=== PATIENT | male | born 1955 | race Caucasian/White ===

== ENCOUNTER 2019-05-03 19:45 | Emergency (ER) | payer BC, OTHER ==
--- NOTE | 2019-05-03 20:43 | ED ---
General Adult HPI - General Chief complaint: Extremity Injury, Lower Stated complaint: Ankle injury Time Seen by Provider: 05/03/19 20:01 Source: patient Mode of arrival: wheelchair Limitations: no limitations - History of Present Illness Initial comments: 64-year-old male patient presents to the emergency department today for evaluation of the right ankle. Patient states he is walking through the parking lot when he slipped on ice and fell injuring the ankle. States he is unable to bear weight on it without significant discomfort. Denies any numbness or tingling to the foot. He was seen and evaluated at urgent care, placed in a posterior splint and sent here for further evaluation. Patient denies hitting his head or losing consciousness during the fall. Denies neck or back pain. Denies any other injuries. Patient denies any headache, chest pain, shortness of breath, dizziness, weakness, abdominal pain, nausea, vomiting, or difficulties with bowel movements or urination. - Related Data Previous Rx's Medication Instructions Recorded Hydrocodone/Acetaminophen [Christine 1 each PO Q6HR PRN #20 tab 08/15/14 5-325] Hydrocodone/Acetaminophen [[place]ine 1 tab PO Q6HR PRN #12 tab 05/03/19 5-325] Ibuprofen [Motrin] 600 mg PO Q8HR PRN #30 tab 05/03/19 Allergies Allergy/AdvReac Type Severity Reaction Status Date / Time dye Allergy Rash/Hives Uncoded 05/03/19 19:57 Review of Systems ROS Statement: Those systems with pertinent positive or pertinent negative responses have been documented in the HPI. ROS Other: All systems not noted in ROS Statement are negative. Past Medical History Past Medical History: No Reported History, Hypertension Additional Past Medical History / Comment(s): tachycardia History of Any Multi-Drug Resistant Organisms: None Reported Past Surgical History: Hernia Repair Additional Past Surgical History / Comment(s): finger amputation. Past Psychological History: No Psychological Hx Reported Smoking Status: Current every day smoker Past Alcohol Use History: None Reported Past Drug Use History: None Reported General Exam Limitations: no limitations General appearance: alert, in no apparent distress, other (This is a well- developed, well-nourished adult male patient in no acute distress. Vital signs upon presentation are temperature 98.7F, pulse 70, respiration 16, blood pressure 145/81, pulse ox 95% on room air.) Eye exam: Present: normal appearance, PERRL, EOMI. Absent: scleral icterus, conjunctival injection, periorbital swelling ENT exam: Present: normal exam, normal oropharynx, mucous membranes moist Respiratory exam: Present: normal lung sounds bilaterally. Absent: respiratory distress, wheezes, rales, rhonchi, stridor Cardiovascular Exam: Present: regular rate, normal rhythm, normal heart sounds. Absent: systolic murmur, diastolic murmur, rubs, gallop, clicks Extremities exam: Present: full ROM, normal capillary refill, other (Posterior splint in place to the right ankle. Toes are cold to touch, cap refill 3 seconds. ). Absent: normal inspection, tenderness, pedal edema, joint swelling, calf tenderness Neurological exam: Present: alert, oriented X3, CN II-XII intact Psychiatric exam: Present: normal affect, normal mood Skin exam: Present: warm, dry, intact, normal color. Absent: rash Course Vital Signs 05/03/19 19:51 Temperature 98.7 F Pulse Rate 70 Respiratory 16 Rate Blood Pressure 145/81 O2 Sat by Pulse 95 Oximetry Medical Decision Making - Medical Decision Making 64-year-old male patient presents to the emergency department today sent from urgent care for evaluation of right ankle fracture. The patient did have a posterior splint in place. He was sent with a disc of his x-ray however was unable to be uploaded. We did repeat x-rays which showed a trimalleolar fracture. We did reinforce splint with additional splint material creating a posterior and stirrup splint. My attending Dr. Haywood spoke to the on-call data entry specialist Dr. Kelly who recommended follow-up in the office as soon as possible. Patient was instructed to remain nonweightbearing to the right leg. He is instructed to keep splint in place. He'll be discharged with pain medication. Return parameters discussed in detail. He verbalizes understanding and agrees with this plan. - Radiology Data Radiology results: report reviewed, image reviewed 3 views of the right ankle are obtained. Report was reviewed in its entirety. Impression by Dr. Soy Oliveira shows trimalleolar fracture/dislocation. Disposition Clinical Impression: Trimalleolar fracture of right ankle Disposition: HOME SELF-CARE Condition: Good Instructions (If sedation given, give patient instructions): Ankle Fracture (ED), Splint Care (ED) Additional Instructions: Do not remove splint. Do not bear any weight to the right ankle or foot. Use crutches for ambulation. Follow-up with the data entry specialist for further evaluation as soon as possible. Follow-up through primary care physician or employee health for further evaluation in 1-2 days. Return to the emergency department for any other new, worsening, or concerning symptoms. Prescriptions: Ibuprofen [Motrin] 600 mg PO Q8HR PRN #30 tab PRN Reason: Pain Hydrocodone/Acetaminophen [Christine 5-325] 1 tab PO Q6HR PRN #12 tab PRN Reason: Pain Is patient prescribed a controlled substance at d/c from ED?: No Referrals: Thu Jackson DO [Primary Care Provider] - 1-2 days Edenilson Kelly MD [STAFF PHYSICIAN] - 1-2 days Time of Disposition: 21:40
--- NOTE | 2019-05-03 21:01 | XR ---
PROCEDURE: XR ankle complete RT - 3V DATE AND TIME: 05/03/2019 8:25 PM CLINICAL INDICATION: PHH; ankle fracture TECHNIQUE: Department protocol COMPARISON: None FINDINGS: Trimalleolar comminuted fracture/dislocation, with approximately 1 cm lateral displacement of the talar dome with respect to the tibial plafond. IMPRESSION: TRIMALLEOLAR FRACTURE/DISLOCATION.
[2019-05-03] MEDS ORDERED: IBUPROFEN 600 MG STARTER PACK 4 TAB BTL PO STA (21:37)
[2019-05-03] MEDS ORDERED: ACET/COD 300 MG/30 MG STARTER PACK 6 TAB BTL PO STA (21:37)
[2019-05-03 22:34] VITALS: BP 137/79; PULSE 72; RESP 19; TEMP 98
--- NOTE | 2019-05-03 22:41 | ED ---
Disposition Clinical Impression: Trimalleolar fracture of right ankle Disposition: HOME SELF-CARE Condition: Good Instructions (If sedation given, give patient instructions): Ankle Fracture (ED), Splint Care (ED) Additional Instructions: Do not remove splint. Do not bear any weight to the right ankle or foot. Use crutches for ambulation. Follow-up with the ammunition specialist for further evaluation as soon as possible. Follow-up through primary care physician or employee health for further evaluation in 1-2 days. Return to the emergency department for any other new, worsening, or concerning symptoms. Prescriptions: Ibuprofen [Motrin] 600 mg PO Q8HR PRN #30 tab PRN Reason: Pain Hydrocodone/Acetaminophen [[place] 5-325] 1 tab PO Q6HR PRN #12 tab PRN Reason: Pain Is patient prescribed a controlled substance at d/c from ED?: No Referrals: Thu Jackson DO [Primary Care Provider] - 1-2 days Edenilson Kelly MD [STAFF PHYSICIAN] - 1-2 days Procedures - Orthopedic Splinting/Casting Injury #1 Side: right Lower Extremity Injury Location: ankle Lower Extremity Immobilizer: stirrup splint, Claudy wrap
== END 2019-05-03 22:03 | disposition home or self-care (01) ==
LOC: EC 19:45
DX: S82.851A Displaced trimalleolar fracture of right lower leg, initial encounter for closed fracture (principal); F17.200 Nicotine dependence, unspecified, uncomplicated; Z91.048 Other nonmedicinal substance allergy status; W00.0XXA Fall on same level due to ice and snow, initial encounter; Y93.01 Activity, walking, marching and hiking; Y92.481 Parking lot as the place of occurrence of the external cause; Y99.0 Civilian activity done for income or pay
CPT/HCPCS: 99283

== ENCOUNTER 2019-05-09 13:35 | Inpatient (IN) | payer BC, OTHER ==
--- NOTE | 2019-05-08 10:26 | HP ---
HISTORY AND PHYSICAL REASON FOR ADMISSION: Surgery is 05/09/2019 HISTORY OF PRESENT ILLNESS: Mina Moran is a 64-year-old patient seen with a right ankle displaced comminuted trimalleolar fracture. I recommended open reduction, internal fixation. I reviewed the procedure, risks, complications, benefits, recovery. The patient was agreeable. Consent was obtained. PAST MEDICAL HISTORY: Hypertension. SURGICAL HISTORY: Noncontributory. MEDICATIONS: Metoprolol. ALLERGIES: CONTRAST IV DYE. SOCIAL: History smokes 1 pack of cigarettes daily. PHYSICAL EXAMINATION: Evaluation of the right ankle reveals there is diffuse swelling, tenderness along the medial lateral malleoli. Limited range of motion. No open wounds. No fracture blisters. He has good pedal pulses. Able to move his toes with no pain. His distal neurovascular exam is intact. X-RAYS: Of the right ankle revealed a comminuted displaced trimalleolar fracture. IMPRESSION: 1. Right ankle trimalleolar fracture. 2. Hypertension. PLAN: Open reduction, internal fixation right ankle trimalleolar fracture. Surgery is 05/09/2019. MMODL / IJN: [id number] /
[~2019-05-09 13:35] MED LIST: DEXAMETHASONE SOD PHOSPHATE 10 MG/ML 1 ML VIAL IV ONE; HYDROmorphone 0.5 MG/0.5 ML SYRINGE IVP PRN; LIDOCAINE 1% 20 ML VIAL (10MG/ML) FOR IV START INTRADERMA PRN; MIDAZOLAM 2 MG/2 ML VIAL IV PRN; ONDANSETRON 4 MG/2 ML VIAL IVP ONE; fentaNYL (PF) 50 MCG/ML 2 ML AMP IV PRN
[2019-05-09] MEDS: LACTATED RINGERS 1,000 ML IV SCH (14:30)
[2019-05-09] MEDS ORDERED: MIDAZOLAM 2 MG/2 ML VIAL IVP ONE (14:55)
[2019-05-09] MEDS ORDERED: LIDOCAINE 1% INJ 10MG/ML (20 ML MDV) ONE (17:25)
[2019-05-09] MEDS ORDERED: SUCCINYLCHOLINE CHLORIDE 100 MG/5 ML SYR IV ONE (17:25)
[2019-05-09] MEDS ORDERED: GLYCOPYRROLATE 0.2 MG/ML 2 ML VIAL ONE (17:25)
[2019-05-09] MEDS ORDERED: NEOSTIGMINE 1 MG/ML 10 ML VIAL ONE (17:25)
[2019-05-09] MEDS ORDERED: ROCURONIUM BROMIDE 10 MG/ML 10 ML VIAL IV ONE (17:25)
[2019-05-09] MEDS ORDERED: PROPOFOL 10 MG/ML 20 ML VIAL IV ONE (17:25)
[2019-05-09] MEDS ORDERED: MIDAZOLAM 2 MG/2 ML VIAL ONE (17:25)
[2019-05-09] MEDS ORDERED: fentaNYL (PF) 50 MCG/ML 2 ML AMP ONE (17:25)
[2019-05-09] MEDS ORDERED: ROPIVACAINE 5 MG/ML 30 ML VIAL ONE (17:25)
[2019-05-09] MEDS ORDERED: HYDROmorphone (PF) 1 MG/ML ONE (17:25)
[2019-05-09] MEDS ORDERED: DEXAMETHASONE SOD PHOSPHATE 4 MG/ML 1 ML VIAL ONE (17:25)
[2019-05-09] MEDS ORDERED: ceFAZolin 1,000 MG in SODIUM CHLORIDE 0.9% 1,000 ML IRRIGATION ONE ×2 (18:48→18:49)
--- NOTE | 2019-05-09 19:20 | XR ---
Fluoroscopy History: ORIF RT ankle ORIF RT ankle. Dr. Guillermo. 3 images scanned. 34 sec fluoro time
[2019-05-09] MEDS ORDERED: ONDANSETRON 4 MG/2 ML VIAL IVP PRN (19:21)
[2019-05-09] MEDS ORDERED: NALOXONE 0.4 MG/ML 1 ML VIAL IV PRN (19:21)
[2019-05-09] MEDS ORDERED: MAGNESIUM HYDROXIDE 2,400 MG/10 ML CUP PO PRN (19:21)
[2019-05-09] MEDS ORDERED: HYDROcodone/APAP 7.5-325MG 1 EACH TAB PO PRN ×2 (19:21→19:22)
[2019-05-09] MEDS ORDERED: HYDROmorphone 0.5 MG/0.5 ML SYRINGE IVP PRN (19:21)
[2019-05-09] MEDS ORDERED: HYDROmorphone 1 MG/ML 1 ML SYRINGE IVP PRN (19:21)
--- NOTE | 2019-05-09 19:27 | P.OP ---
Date of Procedure: 05/09/19 Preoperative Diagnosis: Comminuted/displaced right ankle trimalleolar fracture Postoperative Diagnosis: Severely comminuted/displaced right ankle trimalleolar fracture Procedure(s) Performed: Open reduction internal fixation right ankle trimalleolar fracture Implants: Synthes one third semitubular plate with appropriate length screws Anesthesia: GETA, regional (Popliteal block) Surgeon: Enrique Guillermo Bench Worker Apprentice #1: Gaudencio Amador Estimated Blood Loss (ml): 20 Pathology: none sent Condition: stable Disposition: PACU Indications for Procedure: 64-year-old patient seen with a comminuted displaced right ankle trimalleolar fracture. I recommended open reduction internal fixation. The procedure, risks, complications and recovery were discussed the patient. He was agreeable. Consent was obtained. Operative Findings: see description of procedure Description of Procedure: Patient was taken to the operative suite. The patient had received a popliteal block by the department of anesthesia for postoperative pain management. Patient underwent a general anesthetic by the department of anesthesia. A well- padded tourniquet placed proximal right thigh. Right lower extremity was prepped and draped in the normal sterile orthopedic fashion. Patient received preoperative IV antibiotics. The extremity was elevated and tourniquet was insufflated to 300. An incision was made over the anterior lateral malleolus. Dissection was taken down through the fracture site. There was a severely comminuted fracture involving the lateral malleolus was a caudal split through the anterior portion of the lateral malleolus which is also severely comminuted. The lateral aspect of the talus was visible. We debrided some of the fragments. I brought the very distal lateral malleolus tip into proximity and held together with K wires. A one third semitubular plate was now placed along the lateral malleolus which was contoured appropriately. Appropriate length screws were inserted proximally we had good bone. I inserted 2 screws distally through good bone. The K wires removed. A brought the C-arm into the operative field and noted the alignment was not reasonable. Some of the fracture fragments were in the and satisfactory. The C-arm was pulled back. At this point I decided to fix the medial malleolus. Incision was made in that area. I dissected down to the medial mortise itself. This is also comminuted. I was able to align it well. 245 mm partially-threaded cancellous screws were introduced with good bite and purchase. The C-arm was brought in Her feel noting good positioning and fixation of the medial malleolus. I now turned my attention back the lateral malleolus. The entire plate construct was removed. I now realign the fracture fragments is as well as I could do given the severe comminution. I again used multiple bone to bone clamps to hold the fracture fragments in position. I now reintroduced the plate capturing the proximal lateral malleolus we had good bone. I was able to one single screw distally. I was able to capture the caudal anterior fragment with one single cannulated screw. The construct distally was reasonably positioned via intraoperative C- arm. The mortise was restored. The fracture seemed to have reasonable stability at this point. Spot films were obtained intraoperatively to document the procedure. The wounds were irrigated. The subcu soft tissues were approximated with 2-0 Vicryl. The skin is proximal skin grzegorz. Sterile dressings were applied. The tourniquet was released and immediate capillary refill noted. I applied a modified bulky Braswell splint with ankle in neutral position. The patient was then transferred to bed and recovery stable condition. Jagjit VARGHESE assisted procedure. His prognosis does remain guarded given the severely comminuted fracture.
--- NOTE | 2019-05-09 19:48 | P.ANPRN ---
Procedure Note - Anesthesia - Nerve Block Performed Right Popliteal Single Time Out Performed: Yes Date of Procedure: 05/09/19 Procedure Start Time: 14:55 Procedure Stop Time: 15:01 Location of Patient: PreOp Indication: Acute Post-Operative Pain, Requested by Surgeon Sedation Type: Sedate with meaningful contact maintained Preparation: Sterile Prep Position: Left Lateral Needle Types: Pajunk Needle Gauge: 21 Ultrasound used to visualize needle placement: Yes Ultrasound used to observe medication spread: Yes Blood Aspirated: No Pain Paresthesia on Injection Noted: No Resistance on Injection: Normal Image Stored and Saved: Yes Events: Uneventful and Well Tolerated (ropi .5% 30cc plus dexamethasone 4mg)
[2019-05-09] MEDS ORDERED: DIGOXIN 125 MCG TAB PO SCH ×2 (22:00→22:01)
[2019-05-09] MEDS ORDERED: VERAPAMIL SR 180 MG TABLET.ER PO SCH ×2 (22:00→22:01)
[2019-05-09] MEDS ORDERED: METOPROLOL SUCCINATE (ER) 50 MG TAB.ER.24H PO SCH ×2 (22:00→22:01)
[2019-05-09] MEDS: traMADol 50 MG TAB PO SCH (22:23)
[2019-05-09] MEDS: SENNOSIDES-DOCUSATE SODIUM 1 EACH TAB PO SCH (22:24)
[2019-05-10] MEDS: traMADol 50 MG TAB PO SCH ×4 (08:04→22:39)
[2019-05-10] MEDS: ENOXAPARIN 30 MG/0.3 ML SYRINGE SQ SCH ×2 (08:05→20:03)
[2019-05-10] MEDS: LACTATED RINGERS 1,000 ML IV SCH (08:06)
--- NOTE | 2019-05-10 13:08 | P.PN ---
Subjective Progress Note Date: 05/10/19 Principal diagnosis: Status post ORIF right trimalleolar ankle fracture Patient evaluated at bedside, he is resting comfortably. His pain is controlled. There is concern the patient being discharged home. Patient cannot bear weight on this ankle for a long time, he has no friends or family around, he also has stairs. He is concerned with his pack. Discussed this with case management. Objective - Vital Signs Vital signs: Vital Signs Temp 97.8 F 05/10/19 07:00 Pulse 76 05/10/19 07:00 Resp 16 05/10/19 07:00 BP 127/73 05/10/19 07:00 Pulse Ox 91 L 05/10/19 07:00 Intake & Output 05/09/19 05/10/19 05/10/19 18:59 06:59 18:59 Intake Total 1451 100 Output Total 320 800 Balance 1451 -220 -800 Weight 104.326 kg Intake: IV 1451 100 Output: Urine 300 800 Estimated Blood Loss 20 Other: # Voids 0 2 - Exam Right lower extremity: Postop splint is in good position and condition. He is able to wiggle the toes. Sensory exam to light touch both proximal distal and intact. Assessment and Plan Plan: Assessment: Postop day #1 status post ORIF right trimalleolar ankle fracture Plan: Pain control, continue current medication GI and DVT prophylaxis, continue current medication Nonweightbearing right lower extremity Ice and elevate often Discussing case with social work and case management about discharge options Time with Patient: Less than 30
[2019-05-10] MEDS: SENNOSIDES-DOCUSATE SODIUM 1 EACH TAB PO SCH (20:09)
[2019-05-10] MEDS: DIGOXIN 125 MCG TAB PO SCH (20:45)
[2019-05-10] MEDS: VERAPAMIL SR 180 MG TABLET.ER PO SCH (20:45)
[2019-05-10] MEDS: METOPROLOL SUCCINATE (ER) 50 MG TAB.ER.24H PO SCH (20:45)
--- NOTE | 2019-05-11 08:23 | P.CONS ---
History of Present Illness - Reason for Consult Consult date: 05/10/19 medical management Requesting physician: Enrique Guillermo - History of Present Illness Mina Moran is a 64 yo M with PMH of HTN, CAD who is POD#1 after ORIF of R ankle trimaleollar fracture. He is feeling well today, reports minimal pain, denies fever, chills, chest pain or shortness of breath. He has no concerns. Review of Systems All systems: negative Constitutional: Denies chills, Denies fever Eyes: denies blurred vision, denies pain Ears, nose, mouth and throat: Denies headache, Denies sore throat Cardiovascular: Denies chest pain, Denies shortness of breath Respiratory: Denies cough Gastrointestinal: Denies abdominal pain, Denies diarrhea, Denies nausea, Denies vomiting Musculoskeletal: Denies myalgias Musculoskeletal: right: ankle pain, as per HPI, foot swelling Integumentary: Denies pruritus, Denies rash Neurological: Denies numbness, Denies weakness Psychiatric: Denies anxiety, Denies depression Endocrine: Denies fatigue, Denies weight change Past Medical History Past Medical History: No Reported History, Hypertension, Pulmonary Embolus (PE) Additional Past Medical History / Comment(s): tachycardia History of Any Multi-Drug Resistant Organisms: None Reported Past Surgical History: Hernia Repair Additional Past Surgical History / Comment(s): PE in 2008; Originally was on Eliqius no longer on. finger amputation. Past Anesthesia/Blood Transfusion Reactions: No Reported Reaction Past Psychological History: No Psychological Hx Reported Smoking Status: Current every day smoker Past Alcohol Use History: None Reported Past Drug Use History: None Reported - Past Family History Father Family Medical History: No Reported History Mother Family Medical History: No Reported History Medications and Allergies Home Medications Medication Instructions Recorded Confirmed Type Ibuprofen [Motrin] 600 mg PO Q8HR PRN #30 tab 05/03/19 05/09/19 Rx Acetaminophen-Codeine 300-30mg 1 tab PO Q6H PRN 05/09/19 05/09/19 History [Tylenol w/codeine #3] Digoxin [Lanoxin] 125 mcg PO DAILY 05/09/19 05/09/19 History Metoprolol Succinate (ER) [Toprol 1 tab PO DAILY 05/09/19 05/09/19 History XL] Verapamil Sr [Isoptin Sr] 1 tab PO DAILY 05/09/19 05/09/19 History Allergies Allergy/AdvReac Type Severity Reaction Status Date / Time dye Allergy Rash/Hives Uncoded 05/09/19 14:25 Physical Exam Vitals: Vital Signs Temp Pulse Pulse Resp BP Pulse Ox 05/11/19 02:27 98.7 F 73 17 123/69 94 L 05/10/19 20:45 79 136/75 05/10/19 19:45 97.6 F 79 15 126/74 05/10/19 16:35 15 05/10/19 16:33 98.4 F 81 15 122/68 93 L 05/10/19 15:00 98.2 F 80 17 110/69 91 L 05/10/19 10:00 98.2 F 69 18 117/64 Intake and Output 05/10/19 05/11/19 05/11/19 22:59 06:59 14:59 Output Total 1225 Balance -1225 Output: Urine 1225 Other: # Voids 2 1 General: well nourished, well developed, NAD. Vitals reviewed Eyes: PERRL, EOMI, conjunctiva normal HENT: normocephalic, mucus membranes moist Neck: supple, no JVD Lungs: normal respiratory effort, no wheezes or rales CV: Regular rate and rhythm, no murmur. Peripheral pulses 2+ Abdomen: soft, nondistended, no organomegaly Lymph: no cervical or axillary LAD Ext: R ankle in wrap, cap refill <2 seconds, sensation intact Skin: warm and dry. Neuro: A&Ox3, normal mood and affect Assessment and Plan (1) Coronary artery disease involving [place] coronary artery Current Visit: Yes Status: Acute Code(s): I25.10 - ATHSCL HEART DISEASE OF [place] CORONARY ARTERY W/O ANG PCTRS SNOMED Code(s): 2101770133850 (2) Hypertension Current Visit: Yes Status: Acute Code(s): I10 - ESSENTIAL (PRIMARY) HYPERTENSION SNOMED Code(s): 11896965 (3) Trimalleolar fracture of right ankle Current Visit: No Status: Acute Code(s): S82.851A - DISPLACED TRIMALLEOLAR FRACTURE OF RIGHT LOWER LEG, INIT SNOMED Code(s): 421283966 (4) History of DVT (deep vein thrombosis) Current Visit: Yes Status: Acute Code(s): Z86.718 - PERSONAL HISTORY OF OTHER VENOUS THROMBOSIS AND EMBOLISM SNOMED Code(s): 544238355 Plan: 1. S/p ORIF of R ankle fracture. Pain control per primary. He is medically stable for discharge 2. CAD, HTN. Continue digoxin, metoprolol, verapamil 3. Hx DVT. Lovenox for DVT prophylaxis
[2019-05-11] MEDS: LACTATED RINGERS 1,000 ML IV SCH (08:29)
[2019-05-11] MEDS: ENOXAPARIN 30 MG/0.3 ML SYRINGE SQ SCH ×2 (09:32→20:18)
[2019-05-11] MEDS: traMADol 50 MG TAB PO SCH ×4 (09:36→22:24)
--- NOTE | 2019-05-11 12:05 | P.PN ---
Subjective Progress Note Date: 05/11/19 Principal diagnosis: Status post ORIF right trimalleolar ankle fracture Patient evaluated at bedside, he is resting comfortably. His pain is controlled. Working with case management and social work on discharge plan Objective - Vital Signs Vital signs: Vital Signs Temp 99.1 F 05/11/19 08:33 Pulse 74 05/11/19 08:33 Resp 14 05/11/19 10:09 BP 114/70 05/11/19 08:33 Pulse Ox 93 L 05/11/19 07:00 Intake & Output 05/10/19 05/11/19 05/11/19 18:59 06:59 18:59 Intake Total 118 Output Total 1150 1225 200 Balance -1150 -1225 -82 Intake: Oral 118 Output: Urine 1150 1225 200 Other: Voiding Method Urinal Urinal # Voids 2 1 1 - Exam Right lower extremity: Postop splint is in good position and condition. He is able to wiggle the toes. Sensory exam to light touch both proximal distal and intact. Assessment and Plan Plan: Assessment: Postop day #2 status post ORIF right trimalleolar ankle fracture Plan: Pain control, continue current medication GI and DVT prophylaxis, continue current medication Nonweightbearing right lower extremity Ice and elevate often Discussing case with social work and case management about discharge options Time with Patient: Less than 30
--- NOTE | 2019-05-11 15:06 | P.PN ---
Subjective Progress Note Date: 05/11/19 Mina Moran is a 64 yo M with PMH of HTN, CAD who is POD#1 after ORIF of R ankle trimaleollar fracture. He is feeling well today, reports minimal pain, denies fever, chills, chest pain or shortness of breath. He has no concerns. 05/11/2019 pain controlled. Up with walker, nonweightbearing of surgical ex tremity as per orthopedic surgeon. Denies lightheadedness, dizziness or focal deficits. Good oral intake, no nausea vomiting or diarrhea. Passing flatus, no bowel movement. Denies chest pain, palpitations or shortness of breath. Objective - Vital Signs Vital signs: Vital Signs Temp 99.1 F 05/11/19 08:33 Pulse 74 05/11/19 08:33 Resp 14 05/11/19 10:09 BP 114/70 05/11/19 08:33 Pulse Ox 93 L 05/11/19 07:00 Intake & Output 05/10/19 05/11/19 05/11/19 18:59 06:59 18:59 Intake Total 118 Output Total 1150 1225 200 Balance -1150 -1225 -82 Intake: Oral 118 Output: Urine 1150 1225 200 Other: Voiding Method Urinal Urinal # Voids 2 1 1 - Exam General: Sitting up in bed, well nourished, well developed, NAD. Vitals reviewed Eyes: PERRL, EOMI, conjunctiva normal HENT: normocephalic, mucus membranes moist Neck: supple, no JVD Lungs: normal respiratory effort, no wheezes or rales CV: Regular rate and rhythm, no murmur. Peripheral pulses 2+ Abdomen: soft, nondistended, no organomegaly Lymph: no cervical or axillary LAD Ext: R ankle in wrap, cap refill <2 seconds, sensation intact Skin: warm and dry. Neuro: A&Ox3, normal mood and affect Assessment and Plan Assessment: (1) Coronary artery disease involving [place] coronary artery Current Visit: Yes Status: Acute Code(s): I25.10 - ATHSCL HEART DISEASE OF [place] CORONARY ARTERY W/O ANG PCTRS SNOMED Code(s): 9596470879424 (2) Hypertension Current Visit: Yes Status: Acute Code(s): I10 - ESSENTIAL (PRIMARY) HYPERTENSION SNOMED Code(s): 13230189 (3) Trimalleolar fracture of right ankle Current Visit: No Status: Acute Code(s): S82.851A - DISPLACED TRIMALLEOLAR FRACTURE OF RIGHT LOWER LEG, INIT SNOMED Code(s): 818777334 (4) History of DVT (deep vein thrombosis) Current Visit: Yes Status: Acute Code(s): Z86.718 - PERSONAL HISTORY OF OTHER VENOUS THROMBOSIS AND EMBOLISM SNOMED Code(s): 061852971 Plan: Continue current medication regime , digoxin, metoprolol, verapamil ,monitoring and symptomatic treatment. Pain management per primary. GI and DVT prophylaxis in place. Discharge planning in progress, potential subacute rehab. Patient concerned about the care of his cat-message left for social work/case management notified. Possibly community resources to assist. Medically stable for discharge. Follow up with PCP in 1 week. The impression and plan of care has been dictated as directed. : I performed a history and examination of this patient, discussed the same with the dictator. I agree with the dictator's note ,documented as a scribe. Any additional findings or plans will be noted.
[2019-05-11] MEDS: PANTOPRAZOLE 40 MG/10 ML VIAL IVP SCH (17:30)
[2019-05-11] MEDS: SENNOSIDES-DOCUSATE SODIUM 1 EACH TAB PO SCH (20:18)
[2019-05-11] MEDS: DIGOXIN 125 MCG TAB PO SCH (20:19)
[2019-05-11] MEDS: VERAPAMIL SR 180 MG TABLET.ER PO SCH (20:19)
[2019-05-11] MEDS: METOPROLOL SUCCINATE (ER) 50 MG TAB.ER.24H PO SCH (20:19)
[2019-05-12] MEDS: LACTATED RINGERS 1,000 ML IV SCH (08:22)
[2019-05-12] MEDS: PANTOPRAZOLE 40 MG/10 ML VIAL IVP SCH (08:28)
[2019-05-12] MEDS: traMADol 50 MG TAB PO SCH ×4 (08:28→21:17)
[2019-05-12] MEDS: ENOXAPARIN 30 MG/0.3 ML SYRINGE SQ SCH ×2 (08:28→20:01)
[2019-05-12] MEDS: PANTOPRAZOLE 40 MG TABLET PO SCH (09:16)
--- NOTE | 2019-05-12 11:35 | P.PN ---
Subjective Progress Note Date: 05/12/19 Mina Moran is a 64 yo M with PMH of HTN, CAD who is POD#1 after ORIF of R ankle trimaleollar fracture. He is feeling well today, reports minimal pain, denies fever, chills, chest pain or shortness of breath. He has no concerns. 05/11/2019 pain controlled. Up with walker, nonweightbearing of surgical ex tremity as per orthopedic surgeon. Denies lightheadedness, dizziness or focal deficits. Good oral intake, no nausea vomiting or diarrhea. Passing flatus, no bowel movement. Denies chest pain, palpitations or shortness of breath. 01/09/2019 no overnight events reported. Tolerating diet with no nausea vomiting or diarrhea. Passing flatus, no bowel movement. Denies lightheadedness, dizziness or focal deficits. Denies chest pain, palpitations or shortness of breath. Vital signs stable. Maintaining O2 sats in the 90s on room air. Discharge planning in progress as per primary to subacute rehab. Objective - Vital Signs Vital signs: Vital Signs Temp 98.2 F 05/12/19 07:00 Pulse 68 05/12/19 07:00 Resp 17 05/12/19 07:00 BP 121/76 05/12/19 07:00 Pulse Ox 92 L 05/12/19 07:00 Intake & Output 05/11/19 05/12/19 05/12/19 18:59 06:59 18:59 Intake Total 340 20 236 Output Total 200 200 Balance 140 -180 236 Intake: Oral 340 20 236 Output: Urine 200 200 Other: Voiding Method Urinal Toilet # Voids 3 1 - Exam General: Sitting up in bed, well nourished, no acute distress Eyes: PERRL, EOMI, conjunctiva normal HENT: normocephalic, mucus membranes moist Neck: supple, no JVD Lungs: normal respiratory effort, no rhonchi, wheezes or rales CV: Regular rate and rhythm, no murmur. Peripheral pulses 2+ Abdomen: soft, nondistended, no organomegaly Lymph: no cervical or axillary LAD Ext: R ankle in wrap, cap refill <2 seconds, sensation intact Skin: warm and dry. Neuro: A&Ox3, normal mood and affect Assessment and Plan Assessment: (1) Coronary artery disease involving [place] coronary artery Current Visit: Yes Status: Acute Code(s): I25.10 - ATHSCL HEART DISEASE OF [place] CORONARY ARTERY W/O ANG PCTRS SNOMED Code(s): 5819096909939 (2) Hypertension Current Visit: Yes Status: Acute Code(s): I10 - ESSENTIAL (PRIMARY) HYPERTENSION SNOMED Code(s): 56094843 (3) Trimalleolar fracture of right ankle Current Visit: No Status: Acute Code(s): S82.851A - DISPLACED TRIMALLEOLAR FRACTURE OF RIGHT LOWER LEG, INIT SNOMED Code(s): 152341659 (4) History of DVT (deep vein thrombosis) Current Visit: Yes Status: Acute Code(s): Z86.718 - PERSONAL HISTORY OF OTHER VENOUS THROMBOSIS AND EMBOLISM SNOMED Code(s): 566920914 Plan: Continue current medication regime , digoxin, metoprolol, verapamil ,monitoring and symptomatic treatment. Discharge planning in progress as per her primary for subacute rehab .Pain management. Aggressive pulmonary toileting with incentive spirometer reinforced .Medically stable for discharge. Follow up with PCP in 1 week. The impression and plan of care has been dictated as directed. : I performed a history and examination of this patient, discussed the same with the dictator. I agree with the dictator's note ,documented as a scribe. Any additional findings or plans will be noted.
--- NOTE | 2019-05-12 12:49 | P.PN ---
Subjective Progress Note Date: 05/12/19 Principal diagnosis: Status post ORIF right trimalleolar ankle fracture Patient evaluated at bedside, he is resting comfortably. His pain is controlled. Working with case management and social work on discharge plan Objective - Vital Signs Vital signs: Vital Signs Temp 98.2 F 05/12/19 07:00 Pulse 68 05/12/19 07:00 Resp 17 05/12/19 07:00 BP 121/76 05/12/19 07:00 Pulse Ox 92 L 05/12/19 07:00 Intake & Output 05/11/19 05/12/19 05/12/19 18:59 06:59 18:59 Intake Total 340 20 472 Output Total 200 200 Balance 140 -180 472 Intake: Oral 340 20 472 Output: Urine 200 200 Other: Voiding Method Urinal Toilet # Voids 3 1 3 - Exam Right lower extremity: Postop splint is in good position and condition. He is able to wiggle the toes. Sensory exam to light touch both proximal distal and intact. Assessment and Plan Plan: Assessment: Postop day #3 status post ORIF right trimalleolar ankle fracture Plan: Pain control, continue current medication GI and DVT prophylaxis, continue current medication Nonweightbearing right lower extremity Ice and elevate often Discussing case with social work and case management about discharge options Time with Patient: Less than 30
[2019-05-12] MEDS: VERAPAMIL SR 180 MG TABLET.ER PO SCH (21:16)
[2019-05-12] MEDS: SENNOSIDES-DOCUSATE SODIUM 1 EACH TAB PO SCH (21:16)
[2019-05-12] MEDS: DIGOXIN 125 MCG TAB PO SCH (21:16)
[2019-05-12] MEDS: METOPROLOL SUCCINATE (ER) 50 MG TAB.ER.24H PO SCH (21:16)
[2019-05-13] MEDS: LACTATED RINGERS 1,000 ML IV SCH (08:24)
[2019-05-13] MEDS: traMADol 50 MG TAB PO SCH ×4 (08:26→21:53)
[2019-05-13] MEDS: ENOXAPARIN 30 MG/0.3 ML SYRINGE SQ SCH ×2 (08:26→21:05)
[2019-05-13] MEDS: PANTOPRAZOLE 40 MG TABLET PO SCH (08:27)
--- NOTE | 2019-05-13 13:27 | P.PN ---
Subjective Progress Note Date: 05/13/19 Principal diagnosis: Status post ORIF right trimalleolar ankle fracture Patient evaluated at bedside, he is resting comfortably. His pain is controlled. Working with case management and social work on discharge plan Objective - Vital Signs Vital signs: Vital Signs Temp 98.1 F 05/13/19 07:00 Pulse 70 05/13/19 07:00 Resp 17 05/13/19 07:00 BP 113/73 05/13/19 07:00 Pulse Ox 94 L 05/13/19 07:00 Intake & Output 05/12/19 05/13/19 05/13/19 18:59 06:59 18:59 Intake Total 694 100 118 Balance 694 100 118 Intake: Oral 694 100 118 Other: Voiding Method Toilet Toilet # Voids 3 1 - Exam Right lower extremity: Postop splint is in good position and condition. He is able to wiggle the toes. Sensory exam to light touch both proximal distal and intact. Assessment and Plan Plan: Assessment: Postop day #4 status post ORIF right trimalleolar ankle fracture Plan: Pain control, low-dose medication as needed GI and DVT prophylaxis, aspirin 81 mg twice a day Nonweightbearing right lower extremity Ice and elevate often Plan for discharge to rehab when insurance Time with Patient: Less than 30
--- NOTE | 2019-05-13 14:31 | P.PN ---
Subjective Progress Note Date: 05/13/19 Mina Moran is a 64 yo M with PMH of HTN, CAD who is POD#1 after ORIF of R ankle trimaleollar fracture. He is feeling well today, reports minimal pain, denies fever, chills, chest pain or shortness of breath. He has no concerns. 05/11/2019 pain controlled. Up with walker, nonweightbearing of surgical ex tremity as per orthopedic surgeon. Denies lightheadedness, dizziness or focal deficits. Good oral intake, no nausea vomiting or diarrhea. Passing flatus, no bowel movement. Denies chest pain, palpitations or shortness of breath. 05/12/2019 no overnight events reported. Tolerating diet with no nausea vomiting or diarrhea. Passing flatus, no bowel movement. Denies lightheadedness, dizziness or focal deficits. Denies chest pain, palpitations or shortness of breath. Vital signs stable. Maintaining O2 sats in the 90s on room air. Discharge planning in progress as per primary to subacute rehab. 05/13/2019 Pain better controlled. Reports not sleeping well,unrelated to pain.patient has been accepted at [facility] rehab. per case management/certified social workers in health care.afebrile, vital signs stable.denies chest pain, palpitations or increased shortness of breath. Objective - Vital Signs Vital signs: Vital Signs Temp 98.1 F 05/13/19 07:00 Pulse 70 05/13/19 07:00 Resp 17 05/13/19 07:00 BP 113/73 05/13/19 07:00 Pulse Ox 94 L 05/13/19 07:00 Intake & Output 05/12/19 05/13/19 05/13/19 18:59 06:59 18:59 Intake Total 694 100 Balance 694 100 Intake: Oral 694 100 Other: Voiding Method Toilet Toilet # Voids 3 1 - Exam General: Sitting up in bed, no acute distress Eyes: PERRL, EOMI, conjunctiva normal HENT: normocephalic, oral mucus membranes moist Neck: supple, no JVD Lungs: normal respiratory effort, no rhonchi, wheezes or rales CV: Regular rate and rhythm, no murmur. Peripheral pulses 2+ Abdomen: soft, nondistended, no organomegaly Lymph: no cervical or axillary LAD Ext: R ankle in wrap, cap refill <2 seconds, wiggles toes freely,sensation intact Skin: warm and dry. Neuro: A&Ox3, normal mood and affect Assessment and Plan Assessment: (1) Coronary artery disease involving [place] coronary artery Current Visit: Yes Status: Acute Code(s): I25.10 - ATHSCL HEART DISEASE OF [place] CORONARY ARTERY W/O ANG PCTRS SNOMED Code(s): 9744540442665 (2) Hypertension Current Visit: Yes Status: Acute Code(s): I10 - ESSENTIAL (PRIMARY) HYPERTENSION SNOMED Code(s): 35413130 (3) Trimalleolar fracture of right ankle Current Visit: No Status: Acute Code(s): S82.851A - DISPLACED TRIMALLEOLAR FRACTURE OF RIGHT LOWER LEG, INIT SNOMED Code(s): 886019669 (4) History of DVT (deep vein thrombosis) Current Visit: Yes Status: Acute Code(s): Z86.718 - PERSONAL HISTORY OF OTHER VENOUS THROMBOSIS AND EMBOLISM SNOMED Code(s): 628263266 Plan: Continue current medication regime , digoxin, metoprolol, verapamil ,monitoring and symptomatic treatment. Discharge planning in progress for subacute rehab. pending insurance/authorization .Pain management. Aggressive pulmonary toileting with incentive spirometer reinforced .Medically stable for discharge. Follow up with PCP in 1 week after DC from subacute rehab. The impression and plan of care has been dictated as directed. : I performed a history and examination of this patient, discussed the same with the dictator. I agree with the dictator's note ,documented as a scribe. Any additional findings or plans will be noted.
[2019-05-13] MEDS: VERAPAMIL SR 180 MG TABLET.ER PO SCH (21:05)
[2019-05-13] MEDS: METOPROLOL SUCCINATE (ER) 50 MG TAB.ER.24H PO SCH (21:05)
[2019-05-13] MEDS: DIGOXIN 125 MCG TAB PO SCH (21:05)
[2019-05-13] MEDS: SENNOSIDES-DOCUSATE SODIUM 1 EACH TAB PO SCH (21:05)
[2019-05-13] MEDS: traZODone HCL 50 MG TAB PO SCH (21:05)
[2019-05-14] MEDS: LACTATED RINGERS 1,000 ML IV SCH (08:09)
[2019-05-14] MEDS: PANTOPRAZOLE 40 MG TABLET PO SCH (08:17)
[2019-05-14] MEDS: traMADol 50 MG TAB PO SCH ×4 (09:10→21:10)
[2019-05-14] MEDS: ENOXAPARIN 30 MG/0.3 ML SYRINGE SQ SCH ×2 (09:11→21:09)
--- NOTE | 2019-05-14 15:55 | XR ---
EXAMINATION TYPE: XR chest 1V portable DATE OF EXAM: 05/14/2019 Comparison: None Clinical History: 64-year-old male with CHF Findings: The cardiomediastinal silhouette, aorta, and pulmonary vasculature are within normal limits. Lungs and pleural spaces are clear. Impression: No acute cardiopulmonary process.
[2019-05-14 16:04] LABS: Basophils # (A) 0.3 k/uL (0-0.2); Basophils % (A) 2 %; Eosinophils # (A) 0.3 k/uL (0-0.7); Eosinophils % (A) 2 %; HCT 41.8 % (39.0-53.0); HGB 13.9 gm/dL (13.0-17.5); Lymphocytes # (A) 1.6 k/uL (1.0-4.8); Lymphocytes % (A) 12 %; MCH 31.6 pg (25.0-35.0); MCHC 33.3 g/dL (31.0-37.0); MCV 94.8 fL (80.0-100.0); Mean Platelet Volume 7.6; Monocytes % (A) 7 %; Neutrophils # (A) 9.4 k/uL (1.3-7.7); Neutrophils % (A) 73 %; Platelet Count 318 k/uL (150-450); RBC 4.41 m/uL (4.30-5.90); RDW 12.9 % (11.5-15.5); WBC 12.9 k/uL (3.8-10.6)
[2019-05-14 16:16] LABS: Albumin 3.4 g/dL (3.5-5.0); Potassium 4.4 mmol/L (3.5-5.1); Total Bilirubin 0.5 mg/dL (0.2-1.3); Total Protein 6.7 g/dL (6.3-8.2)
--- NOTE | 2019-05-14 19:32 | PN ---
PROGRESS NOTE DATE OF SERVICE: 05/14/2019 I am covering for Dr. Jackson. This 64-year-old gentleman who was admitted after open reduction/internal fixation of the right ankle, trimalleolar fracture is being closely monitored. PT/OT is evaluating the patient for possible ECF rehab. No chest pain. No palpitations. No fever. No shortness of breath. PHYSICAL EXAM: Alert and oriented x3. Pulse 78. Blood pressure 95/59, respiration 18, temperature 97.9, pulse ox 94% on room air. HEENT: Conjunctivae normal. Oral mucosa moist. NECK is no jugular venous distention. No carotid bruit. No lymph node enlargement. CARDIOVASCULAR: S1, S2 muffled. RESPIRATORY: Breath sounds diminished in the bases. No rhonchi. No crackles. ABDOMEN: Soft. Nontender. LEGS: Status post right ankle fracture. NERVOUS SYSTEM: No focal deficits. LABS: Not available. ASSESSMENT: 1. Right ankle fracture status post ORIF. 2. Gait dysfunction. 3. Severe pain. 4. Hypertension. 5. History of pulmonary embolism. 6. History of tachycardia. 7. History of hernia repair. 8. History of finger amputation. 9. History of continued ongoing nicotine dependence. RECOMMENDATIONS AND DISCUSSION: Recommend to continue current medications. Continue current management and symptomatic treatment. Otherwise, I would recommend continue with DVT prophylaxis. Incentive spirometry. I would also recommend baseline labs including chest x-ray and PT/OT evaluation. Further recommendations to follow. See orders for details. MMODL / IJN: [id number] /
[2019-05-14] MEDS: DIGOXIN 125 MCG TAB PO SCH (21:09)
[2019-05-14] MEDS: METOPROLOL SUCCINATE (ER) 50 MG TAB.ER.24H PO SCH (21:09)
[2019-05-14] MEDS: SENNOSIDES-DOCUSATE SODIUM 1 EACH TAB PO SCH (21:09)
[2019-05-14] MEDS: VERAPAMIL SR 180 MG TABLET.ER PO SCH (21:10)
[2019-05-14] MEDS: traZODone HCL 50 MG TAB PO SCH (21:10)
[2019-05-15] MEDS: LACTATED RINGERS 1,000 ML IV SCH (05:50)
[2019-05-15] MEDS: PANTOPRAZOLE 40 MG TABLET PO SCH (07:53)
[2019-05-15] MEDS: ENOXAPARIN 30 MG/0.3 ML SYRINGE SQ SCH ×2 (08:55→20:41)
[2019-05-15] MEDS: traMADol 50 MG TAB PO SCH ×4 (08:55→21:47)
[2019-05-15 12:20] VITALS: BMI 31.1
[2019-05-15 14:43] LABS: Appearance,Urine Clear (Clear); Bilirubin,Urine Negative (Negative); Blood,Urine Negative (Negative); Color,Urine Yellow; Glucose,Urine (UA) Negative (Negative); Ketones,Urine Negative (Negative); Leukocyte Esterase,Urine Negative (Negative); Nitrite,Urine Negative (Negative); PH, Urine 5.5 (5.0-8.0); Protein,Urine Negative (Negative); Specific Gravity,Urine 1.023 (1.001-1.035)
--- NOTE | 2019-05-15 19:25 | PN ---
PROGRESS NOTE DATE OF SERVICE: 05/15/2019. I am covering for Dr. Jackson. This 64-year-old gentleman who was admitted with right ankle fracture had an ORIF. The patient has extremely poor social support at home. The patient also reports significant difficulties with activities of daily living including even putting the socks himself. He is being closely monitored. No chest pain. No palpitations. No fever. EXAM: Alert and oriented x3. Pulse is 63, blood pressure 110/62, respirations 16, temp 97.2, pulse ox 98% on room air. HEENT: Conjunctivae normal. Oral mucosa moist. NECK: No jugular venous distention. No lymph node enlargement. CARDIOVASCULAR: S1, S2. RESPIRATORY: Diminished breath sounds at the bases. No rhonchi, no crackles. ABDOMEN: Soft, nontender. LEGS: Right ankle fracture. NERVOUS SYSTEM: No focal deficits. LAB STUDIES: WBC 12.9, sodium 130, potassium 4.4. ASSESSMENT: 1. Right ankle fracture status post ORIF. 2. Gait dysfunction. 3. Severe pain. 4. Hypertension. 5. History of pulmonary embolism. 6. History of tachycardia. 7. History of hernia repair. 8. History of finger amputation. 9. History of continued ongoing nicotine dependence. RECOMMENDATION AND DISCUSSION: Recommend to continue current medications, continue symptomatic treatment. Otherwise, PT and OT evaluating the patient. iron worker apprentice to evaluate the patient for possible ECF rehab. Otherwise, continue the rest of medications including DVT prophylaxis. Further recommendations to follow. MMODL / IJN: [id number] /
[2019-05-15] MEDS: traZODone HCL 50 MG TAB PO SCH (20:41)
[2019-05-15] MEDS: SENNOSIDES-DOCUSATE SODIUM 1 EACH TAB PO SCH (20:41)
[2019-05-15] MEDS: DIGOXIN 125 MCG TAB PO SCH (20:41)
[2019-05-15] MEDS: VERAPAMIL SR 180 MG TABLET.ER PO SCH (20:41)
[2019-05-15] MEDS: METOPROLOL SUCCINATE (ER) 50 MG TAB.ER.24H PO SCH (20:41)
[2019-05-16 07:25] LABS: Basophils # (A) 0.2 k/uL (0-0.2); Basophils % (A) 2 %; Eosinophils # (A) 0.3 k/uL (0-0.7); Eosinophils % (A) 2 %; HCT 38.5 % (39.0-53.0); HGB 13.2 gm/dL (13.0-17.5); Lymphocytes # (A) 1.8 k/uL (1.0-4.8); Lymphocytes % (A) 14 %; MCH 32.5 pg (25.0-35.0); MCHC 34.4 g/dL (31.0-37.0); MCV 94.7 fL (80.0-100.0); Mean Platelet Volume 6.7; Monocytes % (A) 7 %; Neutrophils # (A) 9.5 k/uL (1.3-7.7); Neutrophils % (A) 72 %; Platelet Count 318 k/uL (150-450); RBC 4.07 m/uL (4.30-5.90); WBC 13.2 k/uL (3.8-10.6)
[2019-05-16 07:57] VITALS: BP 123/69; PULSE 75; RESP 14; TEMP 98.7
[2019-05-16] MEDS: traMADol 50 MG TAB PO SCH ×2 (08:08→11:11)
[2019-05-16] MEDS: PANTOPRAZOLE 40 MG TABLET PO SCH (08:08)
[2019-05-16] MEDS: ENOXAPARIN 30 MG/0.3 ML SYRINGE SQ SCH (08:08)
[2019-05-16] MEDS: LACTATED RINGERS 1,000 ML IV SCH (08:08)
--- NOTE | 2019-05-16 09:50 | P.PN ---
Subjective Progress Note Date: 05/16/19 Principal diagnosis: Status post ORIF right trimalleolar ankle fracture Patient evaluated at bedside, he is resting comfortably. Patient continues to do very well. We are waiting a Worker's Comp. clearance to rehab. Objective - Vital Signs Vital signs: Vital Signs Temp 98.7 F 05/16/19 07:00 Pulse 75 05/16/19 07:00 Resp 14 05/16/19 08:00 BP 123/69 05/16/19 07:00 Pulse Ox 96 05/16/19 07:00 Intake & Output 05/15/19 05/16/19 05/16/19 18:59 06:59 18:59 Intake Total 1040 300 Balance 1040 300 Weight 104.326 kg Intake: Oral 1040 300 Other: Voiding Method Toilet Toilet Toilet Urinal Urinal # Voids 2 - Exam Right lower extremity: Postop splint is in good position and condition. He is able to wiggle the toes. Sensory exam to light touch both proximal distal and intact. - Labs CBC & Chem 7: 05/16/19 06:54 05/14/19 15:47 Labs: Abnormal Lab Results - Last 24 Hours (Table) 05/16/19 Range/Units 06:54 WBC 13.2 H (3.8-10.6) k/uL RBC 4.07 L (4.30-5.90) m/uL Hct 38.5 L (39.0-53.0) % Neutrophils # 9.5 H (1.3-7.7) k/uL Assessment and Plan Plan: Assessment: Postop day #7 status post ORIF right trimalleolar ankle fracture Plan: Pain control, low-dose medication as needed GI and DVT prophylaxis, aspirin 81 mg twice a day Nonweightbearing right lower extremity Ice and elevate often Plan for discharge to rehab when insurance allows Time with Patient: Less than 30
--- NOTE | 2019-05-16 12:12 | P.DS ---
Providers Date of admission: 05/11/19 16:14 Expected date of discharge: 05/16/19 Attending physician: Enrique Guillermo Consults: 05/09/19 19:23 Consult Physician Routine Consulting Provider: Raoul Jackson Consult Reason/Comments: Medical Management Do you want consulting provider notified?: Yes Primary care physician: Thu Jackson [facility] Course: Date of admission: 05/09/2019 Date of discharge: 05/16/2019 Admission diagnosis: Status post ORIF right trimalleolar ankle fracture Discharge diagnosis: Same Attending physician: Dr. Guillermo Surgical procedures: ORIF right trimalleolar ankle fracture Brief history: Patient is a 64-year-old male who was evaluated in the outpatient setting by Dr. Guillermo with regards to an injury involving the right ankle. It was determined he had a displaced and comminuted right trimalleolar ankle fracture that will require surgical fixation. He was scheduled for surgery on 05/09/2019. Hospital course: Details of patient's surgery can be found in operative report. Patient tolerated the procedure well and was subsequently transported to orthopedic floor. Patient's orthopeidc and medical care was provided daily. Patient had daily laboratory tests performed for evaluation of overall blood counts. Patient had daily physical therapy to include strengthening range of motion as well as education with walker ambulation. Patient was treated with Lovenox for their postoperative DVT prophylaxis during their inpatient stay. Patient was noted to have a relatively uneventful postoperative course. Patient reported satisfactory pain control with oral pain medications by postoperative day 0. Patient showed satisfactory progress with physical therapy. Patient moved steadily through the program and had no difficulty meeting the goals by postoperative day 7. Given patient's otherwise satisfactory course and having met physical therapy goals, plan is to discharge patient rehab on postoperative day 7. Discharge condition/disposition: Patient will be discharged to rehab in stable condition. Discharge medications: Instructions are given on resumption of patient's normal daily medications per primary care recommendation, in addition patient will be prescribed tramadol 50 mg, aspirin 81 mg. Discharge instructions: 1. Do not remove splint, keep dry and covered while showering 2. Nonweightbearing right lower extremity, crutches or walker at all times 3. Ice and elevate when necessary. Do not exceed 20 minutes per hour with ice pack. 4. Follow up in office at 2 weeks postop with Jagjit Amador PA-C 5. Follow up with your primary care doctor 7-10 days after discharge. 6. Contact [facility] with any questions, . Procedures: Open reduction internal fixation right trimalleolar ankle fracture Patient Condition at Discharge: Good Plan - Discharge Summary Discharge Rx Participant: Yes New Discharge Prescriptions: New Aspirin [Adult Low Dose Aspirin EC] 81 mg PO BID #60 tablet. traMADol HCl [Ultram] 50 mg PO Q6H PRN #28 tab PRN Reason: Pain No Action Ibuprofen [Motrin] 600 mg PO Q8HR PRN #30 tab PRN Reason: Pain Verapamil Sr [Isoptin Sr] 1 tab PO DAILY Acetaminophen-Codeine 300-30mg [Tylenol w/codeine #3] 1 tab PO Q6H PRN PRN Reason: Mild To Moderate Pain Metoprolol Succinate (ER) [Toprol XL] 1 tab PO DAILY Digoxin [Lanoxin] 125 mcg PO DAILY Discharge Medication List Ibuprofen [Motrin] 600 mg PO Q8HR PRN #30 tab 05/03/19 [Rx] Acetaminophen-Codeine 300-30mg [Tylenol w/codeine #3] 1 tab PO Q6H PRN 05/09/19 [History] Digoxin [Lanoxin] 125 mcg PO DAILY 05/09/19 [History] Metoprolol Succinate (ER) [Toprol XL] 1 tab PO DAILY 05/09/19 [History] Verapamil Sr [Isoptin Sr] 1 tab PO DAILY 05/09/19 [History] Aspirin [Adult Low Dose Aspirin EC] 81 mg PO BID #60 tablet. 05/13/19 [Rx] traMADol HCl [Ultram] 50 mg PO Q6H PRN #28 tab 05/13/19 [Rx] Follow up Appointment(s)/Referral(s): Chad Williamson, [NON-STAFF] - As Needed Gaudencio Amador PAC [PHYSICIAN RE EXAMINER] - 2 Weeks Activity/Diet/Wound Care/Special Instructions: Orthopedic discharge instructions: 1. Do not remove splint, keep covered and dry while showering An 2. Nonweightbearing right lower extremity, crutches or walker at all times 3. Ice and elevate often 4. Pain medication as needed 5. Aspirin 81 mg twice a day 6. Plan for follow-up at [facility] in 2 weeks Discharge Disposition: TRANSFER TO SNF/ECF
--- NOTE | 2019-05-16 12:53 | P.PN ---
Subjective Progress Note Date: 05/16/19 Mina Moran is a 64 yo M with PMH of HTN, CAD who is POD#1 after ORIF of R ankle trimaleollar fracture. He is feeling well today, reports minimal pain, denies fever, chills, chest pain or shortness of breath. He has no concerns. 05/11/2019 pain controlled. Up with walker, nonweightbearing of surgical ex tremity as per orthopedic surgeon. Denies lightheadedness, dizziness or focal deficits. Good oral intake, no nausea vomiting or diarrhea. Passing flatus, no bowel movement. Denies chest pain, palpitations or shortness of breath. 05/12/2019 no overnight events reported. Tolerating diet with no nausea vomiting or diarrhea. Passing flatus, no bowel movement. Denies lightheadedness, dizziness or focal deficits. Denies chest pain, palpitations or shortness of breath. Vital signs stable. Maintaining O2 sats in the 90s on room air. Discharge planning in progress as per primary to subacute rehab. 05/13/2019 Pain better controlled. Reports not sleeping well,unrelated to pain.patient has been accepted at [facility] rehab. per case management/social science professor.afebrile, vital signs stable.denies chest pain, palpitations or increased shortness of breath. 05/16/2019 significant clinical improvement. Pain controlled. Denies chest pain, palpitations or shortness of breath. Denies lightheadedness, dizziness or focal deficits. Tolerating diet, positive bowel movement. Denies nausea vomiting or diarrhea. Vital signs stable. Objective - Vital Signs Vital signs: Vital Signs Temp 98.7 F 05/16/19 07:00 Pulse 75 05/16/19 07:00 Resp 14 05/16/19 08:00 BP 123/69 05/16/19 07:00 Pulse Ox 96 05/16/19 07:00 Intake & Output 05/15/19 05/16/19 05/16/19 18:59 06:59 18:59 Intake Total 1040 300 Balance 1040 300 Weight 104.326 kg Intake: Oral 1040 300 Other: Voiding Method Toilet Toilet Toilet Urinal Urinal # Voids 2 - Exam General: Sitting up in bed, no acute distress Eyes: PERRL, EOMI, conjunctiva normal HENT: normocephalic, oral mucus membranes moist Neck: supple, no JVD Lungs: normal respiratory effort, no rhonchi, wheezes or rales CV: Regular rate and rhythm, no murmur. Peripheral pulses 2+ Abdomen: soft, nondistended, no organomegaly Ext: R ankle in wrap, cap refill <2 seconds, wiggles toes freely,sensation i ntact Skin: warm and dry. Neuro: A&Ox3, normal mood and affect - Labs CBC & Chem 7: 05/16/19 06:54 05/14/19 15:47 Labs: Abnormal Lab Results - Last 24 Hours (Table) 05/16/19 Range/Units 06:54 WBC 13.2 H (3.8-10.6) k/uL RBC 4.07 L (4.30-5.90) m/uL Hct 38.5 L (39.0-53.0) % Neutrophils # 9.5 H (1.3-7.7) k/uL Assessment and Plan Assessment: (1) Coronary artery disease involving [place] coronary artery Current Visit: Yes Status: Acute Code(s): I25.10 - ATHSCL HEART DISEASE OF [place] CORONARY ARTERY W/O ANG PCTRS SNOMED Code(s): 7532716676587 (2) Hypertension Current Visit: Yes Status: Acute Code(s): I10 - ESSENTIAL (PRIMARY) HYPERTENSION SNOMED Code(s): 10414402 (3) Trimalleolar fracture of right ankle Current Visit: No Status: Acute Code(s): S82.851A - DISPLACED TRIMALLEOLAR FRACTURE OF RIGHT LOWER LEG, INIT SNOMED Code(s): 856093074 (4) History of DVT (deep vein thrombosis) Current Visit: Yes Status: Acute Code(s): Z86.718 - PERSONAL HISTORY OF OTHER VENOUS THROMBOSIS AND EMBOLISM SNOMED Code(s): 150247166 Plan: Continue current medication regime , digoxin, metoprolol, verapamil ,monitoring and symptomatic treatment. Discharge planning in progress for [facility]. today. Continue with aggressive pulmonary toileting with incentive spirometer as previously ordered; every hour 10 while awake.Medically stable for discharge. Follow up with PCP in 1 week after DC from subacute rehab. The impression and plan of care has been dictated as directed. : I performed a history and examination of this patient, discussed the same with the dictator. I agree with the dictator's note ,documented as a scribe. Any additional findings or plans will be noted.
== END 2019-05-16 15:24 | DRG 494 ==
LOC: OR 13:35 → 4SSUR 19:59
PROVIDERS: ADMIT Orthopaedic Surgery; ATTEND Orthopaedic Surgery
PROC: 0QSG04Z Reposition Right Tibia with Internal Fixation Device, Open Approach (ICD-10-PCS; 2019-05-09)
PROC: 0QSJ04Z Reposition Right Fibula with Internal Fixation Device, Open Approach (ICD-10-PCS; principal; 2019-05-09 17:25)
DX: S82.851A Displaced trimalleolar fracture of right lower leg, initial encounter for closed fracture (principal); F17.210 Nicotine dependence, cigarettes, uncomplicated; G47.00 Insomnia, unspecified; I10 Essential (primary) hypertension; I25.10 Atherosclerotic heart disease of native coronary artery without angina pectoris; R26.9 Unspecified abnormalities of gait and mobility; Z63.8 Other specified problems related to primary support group; Z86.711 Personal history of pulmonary embolism; Z86.718 Personal history of other venous thrombosis and embolism; Z79.899 Other long term (current) drug therapy; Z91.048 Other nonmedicinal substance allergy status; Z89.9 Acquired absence of limb, unspecified
CPT/HCPCS: 64450; 71045; 76942; 80053; 81003; 85025